=== PATIENT | male | born 1990 | race American Indian/Alaskan Native ===

== ENCOUNTER 2018-10-19 20:35 | Emergency (ER) | payer OTHER ==
[2018-10-19] MEDS ORDERED: KEPPRA 1,000 MG/NS 0.75% 100ML 1,000 MG/100 ML BAG IV ONE (20:55)
--- NOTE | 2018-10-19 20:58 | Emergency Department Report ---
HPI - General Chief Complaint: Seizure Time Seen by Provider: 10/19/18 20:49 - HPI HPI: 28-year-old -[place] male presents to the emergency department by EMS after he had a witnessed seizure while getting off the bus. Currently he is awake and alert and just has the complaint of feeling fatigued. He does have a seizure disorder for which he takes Tegretol 400 mg twice daily and Keppra 500 mg twice daily and says he is compliant. He is a tobacco smoker but denies any illicit drug use. He denies any current alcohol consumption today. He denies any current headache, vision change, slurred speech or any neurological deficits other than the previous seizure. ED Past Medical Hx - Past Medical History Previous Medical History?: Yes Hx Seizures: Yes - Surgical History Past Surgical History?: No ED Review of Systems ROS: Stated complaint: SEIZURE Other details as noted in HPI Comment: All other systems reviewed and negative Constitutional: denies: chills, fever Eyes: denies: eye pain, vision change ENT: denies: ear pain, throat pain Respiratory: denies: cough, shortness of breath Cardiovascular: denies: chest pain, palpitations Gastrointestinal: denies: abdominal pain, vomiting Genitourinary: denies: dysuria, frequency Musculoskeletal: denies: back pain, arthralgia Skin: denies: rash, lesions Neurological: other (seizure). denies: headache, numbness Physical Exam - Physical Exam Vital Signs: Vital Signs 10/19/18 20:48 Temperature 98.6 F Pulse Rate 99 H Respiratory 17 Rate Blood Pressure 100/45 [Right] O2 Sat by Pulse 98 Oximetry Physical Exam: GENERAL: The patient is well-developed well-nourished. HENT: Normocephalic. Atraumatic. Patient has moist mucous membranes. EYES: Extraocular motions are intact. Pupils equal reactive to light bilaterally. No nystagmus. NECK: Supple. Trachea is midline. CHEST/LUNGS: Clear to auscultation. There is no respiratory distress noted. HEART/CARDIOVASCULAR: Regular. There is no tachycardia. There is no murmur. ABDOMEN: Abdomen is soft, nontender. Patient has normal bowel sounds. There is no abdominal distention. SKIN: Skin is warm and dry. NEURO: The patient is awake, alert, and oriented. The patient is cooperative. The patient has no focal neurologic deficits. The patient has normal speech. Cranial nerves II through XII grossly intact. No pronator drift. No dysmetria. MUSCULOSKELETAL: There is no tenderness or deformity. There is no evidence of acute injury. ED Course Vital Signs 10/19/18 20:48 Temperature 98.6 F Pulse Rate 99 H Respiratory 17 Rate Blood Pressure 100/45 [Right] O2 Sat by Pulse 98 Oximetry ED Medical Decision Making - Lab Data Result diagrams: 10/19/18 21:05 10/19/18 21:05 - EKG Data -: EKG Interpreted by Me EKG shows normal: sinus rhythm, axis, intervals, QRS complexes, ST-T waves Rate: normal - EKG Data When compared to previous EKG there are: previous EKG unavailable Interpretation: normal EKG - Medical Decision Making This patient presents after having a seizure earlier today just prior to presentation. Since being in the emergency department, the patient has been awake, alert, oriented and appropriate. He does not have any focal, motor or sensory deficits and his cranial nerves are intact. An EKG was done that does not show any signs of ST elevation MO or dysrhythmia. His labs have been unremarkable including CBC, metabolic panel, blood alcohol level, CK. The patient was given a loading dose of Keppra and his dose of Tegretol. He was reevaluated multiple times over multiple hours and has remained awake and alert without any further seizure-like activity. Prior to discharge, the patient was seen ambulatory in the emergency department and both appears and feels stable. He'll be discharged home to follow-up with his primary care physician, but return to the emergency department with any further seizures, worsening of his symptoms, or any acute distress. - Differential Diagnosis epilepsy, substance abuse, dysrhythmia, hypoglycemia Critical Care Time: No Critical care attestation.: If time is entered above; I have spent that time in minutes in the direct care of this critically ill patient, excluding procedure time. ED Disposition Clinical Impression: Seizure Disposition: DC-01 TO HOME OR SELFCARE Is pt being admited?: No Condition: Stable Instructions: Epilepsy (ED) Additional Instructions: Please follow-up with your primary care physician in the next few days. Return to the emergency department with any further seizures or with any acute distress. Continue with your normal seizure medications. Please try and quit smoking and avoid any alcohol consumption. Referrals: Primary Care Provider, Your [Other] - 2-3 Days Time of Disposition: 23:38
[2018-10-19 21:20] LABS: Basophils % (Auto) 0.2 % (0.0-1.8); Eosinophils % (Auto) 0.2 % (0.0-4.3); Hematocrit 39.9 % (35.5-45.6); Hemoglobin 13.2 gm/dl (11.8-15.2); Lymphocytes # (Auto) 0.7 K/mm3 (1.2-5.4); Lymphocytes % (Auto) 11.3 % (13.4-35.0); Mean Corpuscular HGB Conc 33 % (32-34); Mean Corpuscular Volume 87 fl (84-94); Monocytes # (Auto) 0.6 K/mm3 (0.0-0.8); Monocytes % (Auto) 9.3 % (0.0-7.3); Platelet Count 206 K/mm3 (140-440); Red Blood Count 4.58 M/mm3 (3.65-5.03); Red Cell Distribution Width 13.5 % (13.2-15.2)
[2018-10-19 21:43] LABS: Alanine Aminotransferase 17 units/L (7-56); Albumin 4.3 g/dL (3.9-5); BUN/Creatinine Ratio 9; Blood Urea Nitrogen 9 mg/dL (9-20); Calcium 9.2 mg/dL (8.4-10.2); Hemolysis Index 4
[2018-10-19 23:50] VITALS: BP 107/67
== END 2018-10-20 00:08 | disposition home or self-care (01) ==
LOC: ED 20:35
DX: R56.9 Unspecified convulsions (principal); F17.200 Nicotine dependence, unspecified, uncomplicated
CPT/HCPCS: 36415; 80053; 82550; 84443; 85025; 93005; 93010; 96374; 99284; J1953; 80320; G0480

== ENCOUNTER 2021-10-16 14:23 | Emergency (ER) | payer SELFPAY ==
--- NOTE | 2021-10-16 22:49 | Emergency Department Report ---
ED General Adult HPI - General Chief complaint: Seizure Stated complaint: SIDE PAIN Time Seen by Provider: 10/16/21 21:08 Source: patient Mode of arrival: Ambulatory Limitations: No Limitations - History of Present Illness Initial comments: 31-year-old -Stateless male with past medical history of seizures reports having a seizure episode about 3 to 4 days ago. States seizure episode reported resulting in him falling off the bed landing on his left side of the vehicle striking the floor and he complains of pain continue to the left rib region with palpation deep breath and range of motion stabilization. Ports no hemoptysis no hematemesis medic easier, no shortness of breath, no fever, chills, sweats. No nausea, no vomiting. She was translatory here on his own but the symptoms continue to nag him presenting in the emergency department today. -: Gradual Radiation: non-radiation Consistency: constant Improves with: none Worsens with: none Associated Symptoms: denies other symptoms Treatments Prior to Arrival: none - Related Data Previous Rx's Medication Instructions Recorded Last Taken Type Ketorolac [Toradol] 10 mg PO Q6H PRN #20 10/16/21 Unknown Rx Allergies Allergy/AdvReac Type Severity Reaction Status Date / Time No Known Allergies Allergy Verified 10/16/21 14:42 ED Review of Systems ROS: Stated complaint: SIDE PAIN Other details as noted in HPI Comment: All other systems reviewed and negative ED Past Medical Hx - Past Medical History Hx Seizures: Yes - Social History Smoking Status: Current Every Day Smoker Substance Use Type: None - Medications Home Medications: Home Medications Medication Instructions Recorded Confirmed Last Taken Type Ketorolac [Toradol] 10 mg PO Q6H PRN #20 10/16/21 Unknown Rx ED Physical Exam - General Limitations: No Limitations General appearance: alert, in no apparent distress - Head Head exam: Present: atraumatic, normocephalic - Eye Eye exam: Present: normal appearance, PERRL, EOMI Pupils: Present: normal accommodation - ENT ENT exam: Present: normal exam, normal orophraynx, mucous membranes moist, TM's normal bilaterally - Neck Neck exam: Present: normal inspection, full ROM - Respiratory Respiratory exam: Present: normal lung sounds bilaterally, chest wall tenderness (Tenderness to the left rib region with palpation. No step-off noted. Thrills. No subcutaneous emphysema is present. No bruise). Absent: respiratory distress, wheezes, rales, rhonchi, accessory muscle use - Cardiovascular Cardiovascular Exam: Present: regular rate, normal rhythm. Absent: systolic murmur, diastolic murmur, rubs, gallop - GI/Abdominal GI/Abdominal exam: Present: soft, normal bowel sounds. Absent: distended, tenderness, guarding, hyperactive bowel sounds, hypoactive bowel sounds, organomegaly - Rectal Rectal exam: Present: deferred - Extremities Exam Extremities exam: Present: normal inspection, full ROM, normal capillary refill. Absent: pedal edema - Back Exam Back exam: Present: normal inspection, CVA tenderness (R), CVA tenderness (L) - Neurological Exam Neurological exam: Present: alert, oriented X3, CN II-XII intact - Psychiatric Psychiatric exam: Present: normal affect, normal mood. Absent: anxious, flat affect - Skin Skin exam: Present: warm, dry, intact, normal color. Absent: rash, cyanosis, diaphoretic ED Course Vital Signs 10/16/21 14:39 Temperature 98.3 F Pulse Rate 89 Respiratory 16 Rate Blood Pressure 121/63 O2 Sat by Pulse 98 Oximetry ED Medical Decision Making - Radiology Data Radiology results: report reviewed [facility] [address] [place] [address] XRay Report Signed Patient: RONALD OLMOS JR MR#: [id number] : 07/24/1992 Acct:[id number] Age/Sex: 29 / M ADM Date: 10/16/21 Loc: ED Attending Dr: Ordering Physician: GELACIO CASTRO Date of Service: 10/16/21 Procedure(s): XR chest routine 2V Accession Number(s): [id number] cc: GELACIO CASTRO Fluoro Time In Minutes: CHEST 2 VIEWS INDICATION / CLINICAL INFORMATION: Chest Pain. FINDINGS: SUPPORT DEVICES: None. HEART / MEDIASTINUM: No significant abnormality. LUNGS / PLEURA: No significant pulmonary or pleural abnormality. No pneumothorax. ADDITIONAL FINDINGS: No significant additional findings. IMPRESSION: 1. No acute findings. Signer Name: Albino Joya MD Signed: 10/16/2021 9:51 PM Workstation Name: [id number] Transcribed By: Dictated By: Albino Joya MD Electronically Authenticated By: Albino Joya MD Signed Date/Time: 10/16/212150 DD/ 50 TD/TT: Critical care attestation.: If time is entered above; I have spent that time in minutes in the direct care of this critically ill patient, excluding procedure time. ED Disposition Clinical Impression: Rib contusion Disposition: HOME / SELF CARE / HOMELESS Is pt being admited?: No Does the pt Need Aspirin: No Condition: Stable Instructions: Contusion, [id number], Rib Contusion, How to Use Cold Therapy Prescriptions: Ketorolac [Toradol] 10 mg PO Q6H PRN #20 PRN Reason: Pain Referrals: [facility] [Provider Group] - 3-5 Days
--- NOTE | 2021-10-16 23:19 | XRay Report ---
LEFT RIBS 4 VIEWS INDICATION: fall with left rib pain. COMPARISON: None available. FINDINGS: RIBS: No acute, displaced fracture or other acute abnormality. CHEST: No acute findings. No pneumothorax. ADDITIONAL FINDINGS: No additional significant findings. IMPRESSION: 1. No acute abnormality. Signer Name: Jose M Gordon MD Signed: 10/16/2021 11:14 PM Workstation Name: [id number]
[2021-10-16 23:36] VITALS: BP 124/67
== END 2021-10-17 00:25 | disposition home or self-care (01) ==
LOC: ED 14:23
DX: S20.219A Contusion of unspecified front wall of thorax, initial encounter (principal); R56.9 Unspecified convulsions; F17.200 Nicotine dependence, unspecified, uncomplicated; W19.XXXA Unspecified fall, initial encounter; Y93.89 Activity, other specified; Y92.89 Other specified places as the place of occurrence of the external cause; Y99.8 Other external cause status
CPT/HCPCS: 71111; 99283